=== PATIENT | female | born 1970 | race Caucasian/White ===

== ENCOUNTER 2017-06-03 14:03 | Emergency (ER) | payer OTHER ==
[~2017-06-03] VITALS: Ht 160 cm; Wt 63.5 kg
[2017-06-03 16:35] LABS: BASOPHILS # (AUTO) 0.02 x10^3/uL (0-0.1); BASOPHILS % (AUTO) 0 % (0-1); EOSINOPHILS # (AUTO) 0.15 x10^3/uL (0-0.4); EOSINOPHILS % (AUTO) 3 % (1-7); LYMPHOCYTES # (AUTO) 1.47 x10^3/uL (1-3.4); LYMPHOCYTES % (AUTO) 25 % (22-44); MD NO; MEAN CORPUSCULAR HEMOGLOBIN 32.4 pg (27.0-34.8); MEAN CORPUSCULAR HGB CONC 34.1 g/dL (32.4-35.8); MEAN PLATELET VOLUME 9.5 fL (7.4-10.4); MONOCYTES # (AUTO) 0.44 x10^3/uL (0.2-0.8); MONOCYTES % (AUTO) 8 % (2-9); NEUTROPHILS # (AUTO) 3.89 x10^3/uL (1.8-6.8); NEUTROPHILS % (AUTO) 65 % (42-75); PLATELET COUNT 188 x10^3/uL (130-400); RED BLOOD COUNT 4.54 x10^6/uL (3.82-5.3); RED CELL DISTRIBUTION WIDTH 12.2 % (9.6-15.2)
[2017-06-03 16:41] LABS: INTERNATIONAL NORMALIZED RATIO 1.07 (0.93-1.1); PROTHROMBIN TIME 11.1 Seconds (9.6-11.5)
[2017-06-03 16:45] LABS: ALBUMIN 3.6 g/dL (3.4-5.0); ANION GAP 6 mmol/L (5-15); CALCIUM 8.9 mg/dL (8.5-10.1); CHLORIDE 111 mmol/L (98-107)
[2017-06-03 16:48] LABS: ALANINE AMINOTRANSFERASE 32 U/L (12-78); ALKALINE PHOSPHATASE 60 U/L (45-117); BILIRUBIN,TOTAL 0.8 mg/dL (0.2-1.0); CREATININE 0.71 mg/dL (0.55-1.02); TOTAL PROTEIN 7.4 g/dL (6.4-8.2)
[2017-06-03 16:49] LABS: TROPONIN I < 0.015 ng/mL (0.000-0.045)
[2017-06-03 17:23] VITALS: BP 111/64
== END 2017-06-03 17:45 | disposition home or self-care (01) ==
LOC: ED 17:04
DX: H53.122 Transient visual loss, left eye (principal); H53.129 Transient visual loss, unspecified eye; Z86.711 Personal history of pulmonary embolism; Z87.891 Personal history of nicotine dependence
CPT/HCPCS: 36415; 70544; 70549; 70553; 80053; 84484; 85025; 85610; 85730; 93880; 99285

== ENCOUNTER 2018-01-23 20:29 | Emergency (ER) | payer OTHER ==
[~2018-01-23] VITALS: Ht 160 cm; Wt 64.3 kg
[2018-01-23] MEDS ORDERED: ASPI-515 PO (20:46)
[2018-01-23 21:26] LABS: BASOPHILS # (AUTO) 0.04 x10^3/uL (0-0.1); BASOPHILS % (AUTO) 1 % (0-1); EOSINOPHILS % (AUTO) 2 % (1-7); LYMPHOCYTES # (AUTO) 1.63 x10^3/uL (1-3.4); LYMPHOCYTES % (AUTO) 24 % (22-44); MD NO; MEAN CORPUSCULAR HGB CONC 34.8 g/dL (32.4-35.8); MEAN CORPUSCULAR VOLUME 94.7 fL (80-100); MEAN PLATELET VOLUME 9.6 fL (7.4-10.4); MONOCYTES # (AUTO) 0.48 x10^3/uL (0.2-0.8); MONOCYTES % (AUTO) 7 % (2-9); NEUTROPHILS # (AUTO) 4.46 x10^3/uL (1.8-6.8); NEUTROPHILS % (AUTO) 67 % (42-75); PLATELET COUNT 209 x10^3/uL (130-400); RED BLOOD COUNT 4.45 x10^6/uL (3.82-5.3); RED CELL DISTRIBUTION WIDTH 12.2 % (9.6-15.2)
[2018-01-23 21:36] LABS: ALANINE AMINOTRANSFERASE 58 U/L (12-78); ALBUMIN 3.9 g/dL (3.4-5.0); ANION GAP 6 mmol/L (5-15); CALCIUM 8.5 mg/dL (8.5-10.1); CHLORIDE 110 mmol/L (98-107); CREATININE 0.79 mg/dL (0.55-1.02)
[2018-01-23 21:40] LABS: ALKALINE PHOSPHATASE 57 U/L (45-117); TOTAL PROTEIN 7.6 g/dL (6.4-8.2); TROPONIN I < 0.015 ng/mL (0.000-0.045)
[2018-01-23 22:23] LABS: INTERNATIONAL NORMALIZED RATIO 1.16 (0.93-1.1); PARTIAL THROMBOPLASTIN TIME 28 Seconds (25-31); PROTHROMBIN TIME 11.9 Seconds (9.6-11.5)
[2018-01-23 22:24] LABS: D-DIMER < 0.19 ug/mlFEU (0.00-0.52)
[2018-01-23] MEDS ORDERED: ONDANSETRON ODT 4 MG ONE (22:25)
[2018-01-23] MEDS ORDERED: ONDANSETRON ODT 4 MG PO ONE (22:30)
[2018-01-23 23:11] VITALS: BP 107/67
== END 2018-01-23 23:13 | disposition home or self-care (01) ==
LOC: ED 23:07
DX: R07.2 Precordial pain (principal); M79.661 Pain in right lower leg; Z86.711 Personal history of pulmonary embolism; Z87.891 Personal history of nicotine dependence
CPT/HCPCS: 36415; 71046; 80053; 84484; 85025; 85379; 85610; 85730; 93005; 99285; Q0162

== ENCOUNTER 2020-02-20 09:58 | Outpatient (CLI) | payer OTHER ==
[~2020-02-20 09:58] MED LIST: ASPI-515 PO
== END 2020-02-20 23:59 | disposition home or self-care (01) ==
LOC: RAD 09:58
PROVIDERS: ATTEND Family Medicine
DX: R07.89 Other chest pain (principal)

== ENCOUNTER → 2020-03-17 | Outpatient (CLI) | payer OTHER | END | disposition home or self-care (01) | LOC: CFH 12:47 | PROVIDERS: ATTEND Family Medicine | DX: N64.4 Mastodynia (principal); R07.89 Other chest pain | CPT/HCPCS: 76642; 77066; G0279 ==